=== PATIENT | male | born 1940 | race Hispanic/Latino ===

== ENCOUNTER 2017-12-25 07:10 | Inpatient (IN) | payer MEDICARE ==
[2017-12-25] MEDS ORDERED: PROVENTIL IH ONE (07:45)
[2017-12-25] MEDS ORDERED: LASIX IV ONE (07:45)
[2017-12-25] MEDS ORDERED: ATROVENT IH ONE (07:45)
--- NOTE | 2017-12-25 07:51 | Emergency Department Report ---
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 He has severe shortness of breath. Arrived by EMS. Hypoxia noted, requiring 4 L NC. Dull nondescript chest pain last night. +runny nose +productive cough +wheezing. No hx of asthma or bronchitis according to the patient. However, I did see in electronic medical record that he was evaluated in the ED for bronchitis and hypoxia in 2014. No recent travel or hospitalization. Recent normal cardiac stress test according to patient. MD Complaint: shortness of breath, cough, chest pain -: Gradual, Last night Severity: severe - Related Data Home Medications Medication Instructions Recorded Confirmed Last Taken Aspirin EC [Aspirin Enteric Coated 81 mg PO QDAY 04/21/15 04/21/15 Unknown TAB] Budesoni/Formotero 160-4.5(Nf) 2 puff IH BID 04/21/15 04/21/15 Unknown [Symbicort 160-4.5 (Nf)] Fluticasone (Nf) [Flovent 220 2 puff IH BID 04/21/15 04/21/15 Unknown MCG/PUFF HFA] Loratadine [Claritin] 10 mg PO DAILY 04/21/15 04/21/15 Unknown Losartan/Hydrochlorothiazide 1 tab PO QDAY 04/21/15 04/21/15 Unknown [Hyzaar 50-12.5 TAB] Montelukast [Singulair] 10 mg PO QDAY 04/21/15 04/21/15 Unknown Niacin [Niacin ER] 1,000 mg PO DAILY 04/21/15 04/21/15 Unknown Previous Rx's Medication Instructions Recorded Last Taken Type ALBUTEROL Inhaler [ProAir HFA 2 puff IH QID PRN #1 inhalation 04/21/15 Unknown Rx Inhaler] Azithromycin [Zithromax TAB] 250 mg PO QDAY #7 tablet 04/21/15 Unknown Rx Allergies Allergy/AdvReac Type Severity Reaction Status Date / Time No Known Allergies Allergy Unverified 04/21/15 13:22 ED Review of Systems ROS: Stated complaint: CHEST PAIN Other details as noted in HPI Comment: All other systems reviewed and negative Constitutional: malaise. 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, biology professor - Medications Home Medications: Home Medications Medication Instructions Recorded Confirmed Last Taken Type ALBUTEROL Inhaler [ProAir HFA 2 puff IH QID PRN #1 inhalation 04/21/15 Unknown Rx Inhaler] Aspirin EC [Aspirin Enteric Coated 81 mg PO QDAY 04/21/15 04/21/15 Unknown History TAB] Azithromycin [Zithromax TAB] 250 mg PO QDAY #7 tablet 04/21/15 Unknown Rx Budesoni/Formotero 160-4.5(Nf) 2 puff IH BID 04/21/15 04/21/15 Unknown History [Symbicort 160-4.5 (Nf)] Fluticasone (Nf) [Flovent 220 2 puff IH BID 04/21/15 04/21/15 Unknown History MCG/PUFF HFA] Loratadine [Claritin] 10 mg PO DAILY 04/21/15 04/21/15 Unknown History Losartan/Hydrochlorothiazide 1 tab PO QDAY 04/21/15 04/21/15 Unknown History [Hyzaar 50-12.5 TAB] Montelukast [Singulair] 10 mg PO QDAY 04/21/15 04/21/15 Unknown History Niacin [Niacin ER] 1,000 mg PO DAILY 04/21/15 04/21/15 Unknown History ED Physical Exam - General General appearance: alert, in distress, other (severe work of breathing, speaking two word sentences with effort) - Head Head exam: Present: atraumatic, normocephalic - Eye Eye exam: Absent: scleral icterus, conjunctival injection - ENT ENT exam: Present: normal orophraynx - Neck Neck exam: Present: normal inspection. Absent: tenderness, meningismus - Respiratory Respiratory exam: Present: respiratory distress, wheezes, rales, rhonchi, accessory muscle use. Absent: stridor - Cardiovascular Cardiovascular Exam: Present: normal rhythm, tachycardia, normal heart sounds. Absent: systolic murmur, diastolic murmur - GI/Abdominal GI/Abdominal exam: Present: soft, other (abdominal retractions). Absent: distended, tenderness, guarding, rebound - Extremities Exam Extremities exam: Absent: pedal edema - Neurological Exam Neurological exam: Present: alert, oriented X3 - Psychiatric Psychiatric exam: Present: normal affect, normal mood - Skin Skin exam: Present: warm, dry, intact, normal color ED Course Vital Signs 12/25/17 12/25/17 12/25/17 07:15 07:25 07:30 Temperature 98.4 F Pulse Rate 107 H 103 H 110 H Pulse Rate [ Bilateral] Pulse Rate [ Throughout] Respiratory 38 H 28 H 27 H Rate Respiratory Rate [Bilateral ] Respiratory Rate [ Throughout] Blood Pressure 152/92 152/89 O2 Sat by Pulse 97 97 97 Oximetry 12/25/17 12/25/17 12/25/17 07:45 08:00 08:12 Temperature Pulse Rate 107 H 105 H Pulse Rate [ 98 H Bilateral] Pulse Rate [ 102 H Throughout] Respiratory 17 18 Rate Respiratory 31 H Rate [Bilateral ] Respiratory 27 H Rate [ Throughout] Blood Pressure 167/92 163/95 O2 Sat by Pulse 97 97 Oximetry 12/25/17 12/25/17 12/25/17 08:13 08:15 08:31 Temperature Pulse Rate 110 H 111 H Pulse Rate [ Bilateral] Pulse Rate [ Throughout] Respiratory 38 H 32 H 10 L Rate Respiratory Rate [Bilateral ] Respiratory Rate [ Throughout] Blood Pressure 138/79 138/79 O2 Sat by Pulse 97 99 98 Oximetry 12/25/17 12/25/17 12/25/17 08:45 09:01 09:15 Temperature Pulse Rate 118 H 125 H 118 H Pulse Rate [ Bilateral] Pulse Rate [ Throughout] Respiratory 29 H 14 23 Rate Respiratory Rate [Bilateral ] Respiratory Rate [ Throughout] Blood Pressure 138/79 124/69 117/71 O2 Sat by Pulse 97 97 99 Oximetry ED Medical Decision Making - Lab Data Result diagrams: 12/25/17 07:56 12/25/17 07:56 - EKG Data EKG shows normal: axis, intervals Rate: tachycardia - EKG Data 12/25/17 07:54 Sinus tachycardia rate of 110 normal axis normal intervals no ST elevation inferior Q waves no signs of ischemia. No signs of Pericarditis - Radiology Data Radiology results: report reviewed CXR no infiltrate no PTX CTA chest no PE no infiltrate - Medical Decision Making Dr. Morrow presents with mild hypoxia, wheezing and cough. Acute bronchitis is the final dx after extensive evaluation in ED. I suspect likely chronic component. With persistent tachycardia, will need further treatment. 92-93% after treatment, breath sounds are now clear on ausculation. I initially felt patient had pneumonia or pulmonary edema with pretty remarkable lung exam. Admitted to hospitalist service in [facility]. Critical Care Time: Yes Critical care time in (mins) excluding proc time.: 45 Critical care attestation.: If time is entered above; I have spent that time in minutes in the direct care of this critically ill patient, excluding procedure time. ED Disposition Clinical Impression: Acute bronchitis, Acute respiratory failure with hypoxia Disposition: DC-09 OP ADMIT IP TO THIS HOSP Is pt being admited?: Yes Does the pt Need Aspirin: No Condition: Stable Time of Disposition: 13:56
[2017-12-25] MEDS ORDERED: BABY ASPIRIN PO ONE (07:55)
--- NOTE | 2017-12-25 08:11 | XRay Report ---
AP CHEST :12/25/17 07:10:00 CLINICAL: Dyspnea. COMPARISON:04/21/15 FINDINGS: Normal heart and pulmonary vasculature. Calcified hilar granulomata. The lungs are normally expanded and clear. The bones and soft tissues are normal. IMPRESSION: Old granulomatous disease. No acute cardiopulmonary process.
[2017-12-25 08:18] LABS: Basophils # (Auto) 0.1 K/mm3 (0.0-0.1); Basophils % (Auto) 1.2 % (0.0-1.8); Eosinophils # (Auto) 0.3 K/mm3 (0.0-0.4); Eosinophils % (Auto) 6.6 % (0.0-4.3); Hematocrit 44.6 % (35.5-45.6); Lymphocytes # (Auto) 0.6 K/mm3 (1.2-5.4); Lymphocytes % (Auto) 12.1 % (13.4-35.0); Mean Corpuscular HGB Conc 34 % (32-34); Mean Corpuscular Hemoglobin 32 pg (28-32); Mean Corpuscular Volume 96 fl (84-94); Monocytes # (Auto) 0.5 K/mm3 (0.0-0.8); Monocytes % (Auto) 10.6 % (0.0-7.3); Platelet Count 116 K/mm3 (140-440); Red Blood Count 4.66 M/mm3 (3.65-5.03); Red Cell Distribution Width 13.9 % (13.2-15.2)
[2017-12-25 08:35] LABS: Alanine Aminotransferase 16 units/L (7-56); Albumin 4.5 g/dL (3.9-5); BUN/Creatinine Ratio 18; Blood Urea Nitrogen 16 mg/dL (9-20); Calcium 9.5 mg/dL (8.4-10.2); Hemolysis Index 6
[2017-12-25] MEDS ORDERED: TYLENOL PO ONE (10:43)
--- NOTE | 2017-12-25 12:40 | Cat Scan Report ---
CTA CHEST: HISTORY: Wheezing, cough. COMPARISON: none. TECHNIQUE: Helical CT in 1.25mm intervals following IV contrast. Pulmonary embolus protocol. Sagittal and coronal reformatted images. Rotational MIP images. FINDINGS: Contrast bolus is satisfactory. No pulmonary embolus is identified. Thyroid gland: Normal. Tracheobronchial tree: Normal. Esophagus: Normal. Heart: Normal. Pericardium: Normal. Mediastinum: Normal. Lung Gastelum: Normal. Pleural Spaces: Normal. Musculoskeletal: Intact. Mild thoracic spondylosis is noted. IMPRESSION: No evidence for pulmonary embolus. Unremarkable CT chest with contrast.
[2017-12-25] MEDS ORDERED: LEVAQUIN PO ONE (14:31)
[2017-12-25] MEDS ORDERED: APRESOLINE IV PRN (23:34)
[2017-12-26] MEDS: PERCOCET 5/325 PO PRN ×3 (00:17→21:29)
--- NOTE | 2017-12-26 01:24 | History and Physical Report ---
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 He has severe shortness of breath. Arrived by EMS. Hypoxia noted, requiring 4 L NC. Dull nondescript chest pain last night. +runny nose +productive cough +wheezing. No hx of asthma or bronchitis according to the patient. However, he was evaluated in the ED for bronchitis and hypoxia in 2014. No recent travel or hospitalization. Recent normal cardiac stress test according to patient. 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, business management professor - Medications Home Medications: Home Medications Medication Instructions Recorded Confirmed Last Taken Type ALBUTEROL Inhaler [ProAir HFA 2 puff IH QID PRN #1 inhalation 04/21/15 Unknown Rx Inhaler] Aspirin EC [Aspirin Enteric Coated 81 mg PO QDAY 04/21/15 04/21/15 Unknown History TAB] Azithromycin [Zithromax TAB] 250 mg PO QDAY #7 tablet 04/21/15 Unknown Rx Budesoni/Formotero 160-4.5(Nf) 2 puff IH BID 04/21/15 04/21/15 Unknown History [Symbicort 160-4.5 (Nf)] Fluticasone (Nf) [Flovent 220 2 puff IH BID 04/21/15 04/21/15 Unknown History MCG/PUFF HFA] Loratadine [Claritin] 10 mg PO DAILY 04/21/15 04/21/15 Unknown History Losartan/Hydrochlorothiazide 1 tab PO QDAY 04/21/15 04/21/15 Unknown History [Hyzaar 50-12.5 TAB] Montelukast [Singulair] 10 mg PO QDAY 04/21/15 04/21/15 Unknown History Niacin [Niacin ER] 1,000 mg PO DAILY 04/21/15 04/21/15 Unknown History Review of Systems ROS: Stated complaint: CHEST PAIN Other details as noted in HPI Comment: All other systems reviewed and negative Constitutional: malaise. denies: fever ENT: congestion Respiratory: cough Cardiovascular: chest pain Medications and Allergies Allergies Allergy/AdvReac Type Severity Reaction Status Date / Time No Known Allergies Allergy Unverified 04/21/15 13:22 Home Medications Medication Instructions Recorded Confirmed Last Taken Type Niacin [Niacin ER] 1,000 mg PO DAILY 04/21/15 12/25/17 12/24/17 History Aspirin [Adult Low Dose Aspirin EC] 81 mg PO DAILY 12/25/17 12/25/17 12/24/17 History AtorvaSTATin [Lipitor] 40 mg PO QHS 12/25/17 12/25/17 12/24/17 History Clopidogrel [Plavix] 75 mg PO QDAY 12/25/17 12/25/17 12/24/17 History ISOSORBIDE MONOnitrate [Imdur ER] 30 mg PO DAILY 12/25/17 12/25/17 12/24/17 History Metoprolol [Lopressor] 25 mg PO DAILY 12/25/17 12/25/17 12/24/17 History Active Meds: Active Medications Aspirin (Halfprin Ec) 81 mg PO DAILY [facility] Atorvastatin Calcium (Lipitor) 40 mg PO QHS [facility] Last Admin: 12/26/17 00:17 Dose: 40 mg Clopidogrel Bisulfate (Plavix) 75 mg PO QDAY [facility] Hydralazine HCl (Apresoline) 5 mg IV Q6H PRN PRN Reason: Hypertension Isosorbide Mononitrate (Imdur) 30 mg PO DAILY [facility] Metoprolol Tartrate (Lopressor) 25 mg PO DAILY [facility] Niacin (Niacin) 1,000 mg PO DAILY [facility] Oxycodone/Acetaminophen (Percocet 5/325) 1 tab PO Q6H PRN PRN Reason: Pain, Moderate (4-6) Last Admin: 12/26/17 00:17 Dose: 1 tab Exam - Constitutional Vitals: Temp Pulse Resp BP Pulse Ox 98.3 F 100 H 20 149/85 94 12/25/17 19:27 12/25/17 19:27 12/26/17 00:17 12/25/17 19:27 12/25/17 19:27 General appearance: Present: mild distress - Respiratory Respiratory: bilateral: diminished, rhonchi - Cardiovascular Heart rate: 78 Rhythm: regular - Extremities Extremities: no ischemia, pulses intact Peripheral Pulses: within normal limits - Abdominal General gastrointestinal: Present: soft, non-tender, non-distended, normal bowel sounds Male genitourinary: Present: deferred - Rectal Rectal Exam: deferred - Integumentary Integumentary: Present: clear, warm, dry - Musculoskeletal Musculoskeletal: strength equal bilaterally - Psychiatric Psychiatric: appropriate mood/affect - Neurologic Neurologic: CNII-XII intact - Allied Health Allied health notes reviewed: nursing, case management Results - Labs CBC & Chem 7: 12/25/17 07:56 12/25/17 07:56 Labs: Laboratory Last Values WBC 4.9 K/mm3 (4.5-11.0) 12/25/17 07:56 RBC 4.66 M/mm3 (3.65-5.03) 12/25/17 07:56 Hgb 15.0 gm/dl (11.8-15.2) 12/25/17 07:56 Hct 44.6 % (35.5-45.6) 12/25/17 07:56 MCV 96 fl (84-94) H 12/25/17 07:56 MCH 32 pg (28-32) 12/25/17 07:56 MCHC 34 % (32-34) 12/25/17 07:56 RDW 13.9 % (13.2-15.2) 12/25/17 07:56 Plt Count 116 K/mm3 (140-440) L 12/25/17 07:56 Lymph % (Auto) 12.1 % (13.4-35.0) L 12/25/17 07:56 [place] % (Auto) 10.6 % (0.0-7.3) H 12/25/17 07:56 Eos % (Auto) 6.6 % (0.0-4.3) H 12/25/17 07:56 Baso % (Auto) 1.2 % (0.0-1.8) 12/25/17 07:56 Lymph # 0.6 K/mm3 (1.2-5.4) L 12/25/17 07:56 [place] # 0.5 K/mm3 (0.0-0.8) 12/25/17 07:56 Eos # 0.3 K/mm3 (0.0-0.4) 12/25/17 07:56 Baso # 0.1 K/mm3 (0.0-0.1) 12/25/17 07:56 Seg Neutrophils % 69.5 % (40.0-70.0) 12/25/17 07:56 Seg Neutrophils # 3.4 K/mm3 (1.8-7.7) 12/25/17 07:56 Sodium 139 mmol/L (137-145) 12/25/17 07:56 Potassium 3.9 mmol/L (3.6-5.0) 12/25/17 07:56 Chloride 99.4 mmol/L (98-107) 12/25/17 07:56 Carbon Dioxide 26 mmol/L (22-30) 12/25/17 07:56 Anion Gap 18 mmol/L 12/25/17 07:56 BUN 16 mg/dL (9-20) 12/25/17 07:56 Creatinine 0.9 mg/dL (0.8-1.5) 12/25/17 07:56 Estimated GFR > 60 ml/min 12/25/17 07:56 BUN/Creatinine Ratio 18 % 12/25/17 07:56 Glucose 113 mg/dL (75-100) H 12/25/17 07:56 Lactic Acid 1.10 mmol/L (0.7-2.0) 12/25/17 07:56 Calcium 9.5 mg/dL (8.4-10.2) 12/25/17 07:56 Total Bilirubin 0.70 mg/dL (0.1-1.2) 12/25/17 07:56 AST 22 units/L (5-40) 12/25/17 07:56 ALT 16 units/L (7-56) 12/25/17 07:56 Alkaline Phosphatase 95 units/L (35-129) 12/25/17 07:56 Troponin T < 0.010 ng/mL (0.00-0.029) 12/25/17 07:56 Total Protein 7.7 g/dL (6.3-8.2) 12/25/17 07:56 Albumin 4.5 g/dL (3.9-5) 12/25/17 07:56 Albumin/Globulin Ratio 1.4 % 12/25/17 07:56 - Imaging and Cardiology Chest x-ray: report reviewed Imaging and Cardiology: CTA chest IMPRESSION: No evidence for pulmonary embolus. Unremarkable CT chest with contrast. Assessment and Plan Advance Directives: Yes (Full code) VTE prophylaxis?: Chemical Plan of care discussed with patient/family: Yes - Patient Problems (1) Acute respiratory failure with hypoxia Current Visit: Yes Status: Acute Plan to address problem: Patient initiated on Duonebs IV Levaquin and Solumedrol Bipap if necessary Intubation if necessary (2) Acute bronchitis Current Visit: Yes Status: Acute Qualifiers: Bronchitis organism: unspecified organism Qualified Code(s): J20.9 - Acute bronchitis, unspecified Plan to address problem: Sec to infection Patient has Hx of Asthma but no COPD Never exposed to smoke or secong hand smoke. IV abx Solumedrol and Duonebs (3) HTN (hypertension) Current Visit: Yes Status: Chronic Qualifiers: Hypertension type: essential hypertension Qualified Code(s): I10 - Essential (primary) hypertension Plan to address problem: Cont antihypertensives (4) CAD (coronary artery disease) Current Visit: Yes Status: Chronic Qualifiers: Coronary Disease-Associated Artery/Lesion type: [place] artery Plan to address problem: Cont ASA Check ECHO for baseline EF Also Lexiscan in AM (5) Hyperlipidemia Current Visit: Yes Status: Chronic Qualifiers: Hyperlipidemia type: mixed hyperlipidemia Qualified Code(s): E78.2 - Mixed hyperlipidemia Plan to address problem: Cont statins (6) Asthma Current Visit: Yes Status: Chronic Qualifiers: Asthma severity: mild Plan to address problem: Cont Singulair (7) DVT prophylaxis Current Visit: Yes Status: Acute Plan to address problem: On Lovenox
[2017-12-26] MEDS ORDERED: MORPHINE IV PRN (01:35)
[2017-12-26] MEDS ORDERED: SODIUM CHLORIDE FLUSH SYRINGE 10 ML IV PRN (01:35)
[2017-12-26] MEDS ORDERED: REGLAN IV PRN (01:35)
[2017-12-26] MEDS ORDERED: TYLENOL PO PRN (01:35)
[2017-12-26] MEDS ORDERED: ZOFRAN IV PRN (01:35)
[2017-12-26] MEDS ORDERED: DUONEB *Not for PRN Use IH (01:40)
[2017-12-26] MEDS ORDERED: PROVENTIL IH PRN (01:57)
[2017-12-26] MEDS: PEPCID PO SCH ×3 (04:19→21:11)
[2017-12-26] MEDS ORDERED: LEXISCAN IV ONE (08:18)
[2017-12-26] MEDS: DUONEB *Not for PRN Use IH SCH ×4 (08:35→21:06)
[2017-12-26] MEDS: LEVAQUIN 750MG/150ML 750 MG/150 ML BAG IV SCH (10:31)
[2017-12-26] MEDS: PLAVIX PO SCH (10:32)
[2017-12-26] MEDS: HALFPRIN EC PO SCH (10:32)
[2017-12-26] MEDS: SODIUM CHLORIDE FLUSH SYRINGE 10 ML IV SCH ×2 (10:32→21:12)
[2017-12-26] MEDS: NIACIN PO SCH (10:32)
[2017-12-26] MEDS: LOPRESSOR PO SCH (10:32)
[2017-12-26] MEDS: IMDUR PO SCH (10:32)
--- NOTE | 2017-12-26 10:38 | Treadmill Report ---
THALLIUM STRESS TEST LEFT VENTRICLE: Left ventricular chamber size is within normal spread. Perfusion study demonstrates a small fixed basal inferior defect of mild intensity. No other significant defects identified. Gated analysis demonstrates normal left ventricular systolic function, ejection fraction of 68%. CONCLUSION: Small fixed basal inferior defect, consistent with diaphragmatic attenuation artifact. Otherwise, normal myocardial perfusion study. Negative study. Clinical correlation is recommended. JOB# [id number] CA/NTS
--- NOTE | 2017-12-26 12:14 | Progress Note ---
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 He has severe shortness of breath. Arrived by EMS. Hypoxia noted, requiring 4 L NC. Dull nondescript chest pain last night. +runny nose +productive cough +wheezing. No hx of asthma or bronchitis according to the patient. However, he was evaluated in the ED for bronchitis and hypoxia in 2014. No recent travel or hospitalization. Recent normal cardiac stress test according to patient. MD Complaint: shortness of breath, cough, chest pain-: Gradual, Last night Severity: severe CTA Chest No evidence for pulmonary embolus. Unremarkable CT chest with contrast. Stress test result pending Past Medical History; htn, cad Acute respiratory failure with hypoxia Patient initiated on Duonebs IV Levaquin and Solumedrol Bipap if necessary Intubation if necessary Acute bronchitis/asthma Sec to infection Patient has Hx of Asthma but no COPD Never exposed to smoke or secong hand smoke. IV abx Solumedrol and Duonebs, singulair HTN (hypertension) Cont antihypertensives CAD (coronary artery disease) Cont ASA Check ECHO for baseline EF Also Lexiscan for ischemic workout Hyperlipidemia Cont statins DVT prophylaxis On Lovenox History Interval history: The patient is still complaining of shortness of breath and wheezing Review of systems Constitutional: No fevers, no malaise, no joint pains CVS: No chest pain, no orthopnea, no dyspnea on exertion, no pedal edema GI: No abdominal pain, no diarrhea, no vomiting, no constipation Hospitalist Physical - Physical exam Narrative exam: General.: Appears well, no distress, nontoxic , unable to speak in full sentences HEENT: Moist mucous membranes, extraocular muscles intact, no lymphadenopathy Neck: supple Cardiac: S1-S2 heard Lungs: Wheezing and rhonchorous breath sounds throughout Abdomen: soft , nontender, nondistended, bowel sounds positive Extremities: no edema clubbing or cyanosis Skin: no rash or lesions Neurologic: no gross focal deficits Psych: appropriate behavior, appropriate mood, corporative, judgment intact - Constitutional Vitals: Temp Pulse Resp BP Pulse Ox 98.0 F 105 H 16 166/91 90 12/26/17 08:17 12/26/17 09:29 12/26/17 08:17 12/26/17 09:29 12/26/17 08:17 General appearance: Present: mild distress Results - Labs CBC & Chem 7: 12/25/17 07:56 12/25/17 07:56 Labs: Laboratory Last Values WBC 4.9 K/mm3 (4.5-11.0) 12/25/17 07:56 RBC 4.66 M/mm3 (3.65-5.03) 12/25/17 07:56 Hgb 15.0 gm/dl (11.8-15.2) 12/25/17 07:56 Hct 44.6 % (35.5-45.6) 12/25/17 07:56 MCV 96 fl (84-94) H 12/25/17 07:56 MCH 32 pg (28-32) 12/25/17 07:56 MCHC 34 % (32-34) 12/25/17 07:56 RDW 13.9 % (13.2-15.2) 12/25/17 07:56 Plt Count 116 K/mm3 (140-440) L 12/25/17 07:56 Lymph % (Auto) 12.1 % (13.4-35.0) L 12/25/17 07:56 [place] % (Auto) 10.6 % (0.0-7.3) H 12/25/17 07:56 Eos % (Auto) 6.6 % (0.0-4.3) H 12/25/17 07:56 Baso % (Auto) 1.2 % (0.0-1.8) 12/25/17 07:56 Lymph # 0.6 K/mm3 (1.2-5.4) L 12/25/17 07:56 [place] # 0.5 K/mm3 (0.0-0.8) 12/25/17 07:56 Eos # 0.3 K/mm3 (0.0-0.4) 12/25/17 07:56 Baso # 0.1 K/mm3 (0.0-0.1) 12/25/17 07:56 Seg Neutrophils % 69.5 % (40.0-70.0) 12/25/17 07:56 Seg Neutrophils # 3.4 K/mm3 (1.8-7.7) 12/25/17 07:56 Sodium 139 mmol/L (137-145) 12/25/17 07:56 Potassium 3.9 mmol/L (3.6-5.0) 12/25/17 07:56 Chloride 99.4 mmol/L (98-107) 12/25/17 07:56 Carbon Dioxide 26 mmol/L (22-30) 12/25/17 07:56 Anion Gap 18 mmol/L 12/25/17 07:56 BUN 16 mg/dL (9-20) 12/25/17 07:56 Creatinine 0.9 mg/dL (0.8-1.5) 12/25/17 07:56 Estimated GFR > 60 ml/min 12/25/17 07:56 BUN/Creatinine Ratio 18 % 12/25/17 07:56 Glucose 113 mg/dL (75-100) H 12/25/17 07:56 Hemoglobin A1c 5.3 % (4-6) 12/26/17 03:34 Lactic Acid 1.10 mmol/L (0.7-2.0) 12/25/17 07:56 Calcium 9.5 mg/dL (8.4-10.2) 12/25/17 07:56 Total Bilirubin 0.70 mg/dL (0.1-1.2) 12/25/17 07:56 AST 22 units/L (5-40) 12/25/17 07:56 ALT 16 units/L (7-56) 12/25/17 07:56 Alkaline Phosphatase 95 units/L (35-129) 12/25/17 07:56 Troponin T < 0.010 ng/mL (0.00-0.029) 12/26/17 06:51 Total Protein 7.7 g/dL (6.3-8.2) 12/25/17 07:56 Albumin 4.5 g/dL (3.9-5) 12/25/17 07:56 Albumin/Globulin Ratio 1.4 % 12/25/17 07:56
--- NOTE | 2017-12-26 13:20 | Consultation ---
History of Present Illness Consult date: 12/26/17 Requesting physician: AIME DOHERTY Reason for consult: COPD (Acute Hypoxemic Respiratory Failure) History of present illness: PULMONARY/CCM CONSULT NOTE (Full dictation # [id number]) Please see dictated notes for full details Medications and Allergies Allergies Allergy/AdvReac Type Severity Reaction Status Date / Time No Known Allergies Allergy Unverified 04/21/15 13:22 Home Medications Medication Instructions Recorded Confirmed Last Taken Type Niacin [Niacin ER] 1,000 mg PO DAILY 04/21/15 12/25/17 12/24/17 History Aspirin [Adult Low Dose Aspirin EC] 81 mg PO DAILY 12/25/17 12/25/17 12/24/17 History AtorvaSTATin [Lipitor] 40 mg PO QHS 12/25/17 12/25/17 12/24/17 History Clopidogrel [Plavix] 75 mg PO QDAY 12/25/17 12/25/17 12/24/17 History ISOSORBIDE MONOnitrate [Imdur ER] 30 mg PO DAILY 12/25/17 12/25/17 12/24/17 History Metoprolol [Lopressor] 25 mg PO DAILY 12/25/17 12/25/17 12/24/17 History Active Meds: Active Medications Acetaminophen (Tylenol) 650 mg PO Q4H PRN PRN Reason: Pain MILD(1-3)/Fever >100.5/HEARD Albuterol (Proventil) 2.5 mg IH Q3HRT PRN PRN Reason: Shortness Of Breath Albuterol/Ipratropium (Duoneb *Not For Prn Use*) 1 ampul IH QIDRT [facility] Last Admin: 12/26/17 13:10 Dose: 1 ampul Aspirin (Halfprin Ec) 81 mg PO DAILY [facility] [place] Last Admin: 12/26/17 10:32 Dose: 81 mg Atorvastatin Calcium (Lipitor) 40 mg PO QHS [facility] [place] Last Admin: 12/26/17 00:17 Dose: 40 mg Clopidogrel Bisulfate (Plavix) 75 mg PO QDAY [facility] Last Admin: 12/26/17 10:32 Dose: 75 mg Enoxaparin Sodium (Lovenox) 40 mg SUB-Q QDAY@2200 [facility] Famotidine (Pepcid) 20 mg PO BID [facility] Last Admin: 12/26/17 10:32 Dose: 20 mg Hydralazine HCl (Apresoline) 5 mg IV Q6H PRN PRN Reason: Hypertension Levofloxacin/Dextrose (Levaquin 750mg/150ml) 750 mg in 150 mls @ 100 mls/hr IV Q24HR [facility]; Protocol Last Admin: 12/26/17 10:31 Dose: 100 mls/hr Isosorbide Mononitrate (Imdur) 30 mg PO DAILY [facility] [place] Last Admin: 12/26/17 10:32 Dose: 30 mg Methylprednisolone Sodium Succinate (Solu-Medrol) 125 mg IV Q8HR [facility] [place] Last Admin: 12/26/17 05:54 Dose: 125 mg Metoclopramide HCl (Reglan) 10 mg IV Q6H PRN PRN Reason: Nausea And Vomiting Metoprolol Tartrate (Lopressor) 25 mg PO DAILY [facility] [place] Last Admin: 12/26/17 10:32 Dose: 25 mg Morphine Sulfate (Morphine) 2 mg IV Q4H PRN PRN Reason: Pain, Moderate (4-6) Niacin (Niacin) 1,000 mg PO DAILY [facility] [place] Last Admin: 12/26/17 10:32 Dose: 1,000 mg Ondansetron HCl (Zofran) 4 mg IV Q8H PRN PRN Reason: Nausea And Vomiting Oxycodone/Acetaminophen (Percocet 5/325) 1 tab PO Q6H PRN PRN Reason: Pain, Moderate (4-6) Last Admin: 12/26/17 10:44 Dose: 1 tab Sodium Chloride (Sodium Chloride Flush Syringe 10 Ml) 10 ml IV BID [facility] [place] Last Admin: 12/26/17 10:32 Dose: 10 ml Sodium Chloride (Sodium Chloride Flush Syringe 10 Ml) 10 ml IV PRN PRN PRN Reason: LINE FLUSH Physical Examination Vital signs: Vital Signs Temp Pulse Resp BP Pulse Ox 98.4 F 107 H 38 H 152/92 97 12/25/17 07:15 12/25/17 07:15 12/25/17 07:15 12/25/17 07:15 12/25/17 07:15 Results - Laboratory Findings CBC and BMP: 12/25/17 07:56 12/25/17 07:56 Abnormal lab findings: Abnormal Labs 12/25/17 12/25/17 07:56 07:56 MCV 96 H Plt Count 116 L Lymph % (Auto) 12.1 L Stark % (Auto) 10.6 H Eos % (Auto) 6.6 H Lymph # 0.6 L Glucose 113 H
[2017-12-26] MEDS: PULMICORT IH SCH (21:05)
[2017-12-26] MEDS: BROVANA NEBU IH SCH (21:05)
[2017-12-26] MEDS: LOVENOX SUB-Q SCH (21:12)
--- NOTE | 2017-12-26 23:42 | Consultation ---
PULMONARY CONSULT NOTE CONSULTING PHYSICIAN: Benjamin Camacho MD REASON FOR CONSULTATION: Acute COPD exacerbation. CHIEF COMPLAINT AND HISTORY OF PRESENT ILLNESS: The patient is a 77-year-old male with past medical history significant amongst other things for a diagnosis of coronary artery disease and he thinks a prior diagnosis of bronchitis, presented to the Emergency Room complaining of severe shortness of breath. He was hypoxemic. He denies being on home oxygen. He had complained of some atypical chest pain in the night before presentation. When I saw him, he was complaining of pain behind the left scapula in the base. He also complained of runny nose and productive cough without any hemoptysis. He also had some wheezing. He was evaluated in the Emergency Room and after evaluation, essentially admitted with a diagnosis of acute bronchitis and acute hypoxemic respiratory failure, believed to be COPD exacerbation. We were asked to assist with management. When I stopped by to see him, he was resting in bed. He remained on supplemental oxygen, still short of breath with mild to moderately increased work of breathing, finding is a little bit difficult to communicate/find his words. He did say he was feeling better. He denied any fevers or chills. He denied sick contacts. He denied being on any bronchodilators at home. He denies any recent long distance travel. Denies any new onset leg pain or swelling either unilaterally or bilaterally or any suggestion of a deep venous thrombosis. Now in terms of tobacco use/abuse, he describes himself as a never smoker and denies any occupational exposures to known pulmonary toxins. That really is as much of the history of presentation as I have. PAST MEDICAL HISTORY: Hypertension, coronary artery disease. He is obese. PAST SURGICAL HISTORY: He denies, but he has had coronary artery stenting x 4. MEDICATIONS: He was on at the time I stopped by to see him were reviewed. Pertinent medications included the following: DuoNeb treatments nebulized q.i.d., Brovana 15 mcg inhaled q. 12 hours, aspirin 81 mg p.o. daily, Lipitor 40 mg p.o. at bedtime, Pulmicort 0.25 mg nebulized q. 12 hours, Plavix 75 mg p.o. daily, Lovenox 40 mg subcutaneous daily, Pepcid 20 mg p.o. b.i.d., Levaquin 750 mg IV daily, Solu-Medrol 125 mg IV q. 8 hours, metoprolol 25 mg p.o. daily, p.r.n. Zofran, and p.r.n. Percocet. ALLERGIES: No known drug allergies. DIET: Obese gentleman. Denies acute weight loss or gain in the preceding few weeks to months. FAMILY AND SOCIAL HISTORY: Lives in the community. I believe he tells me he lives alone. Reportedly, a retired physics professor. Denies current or prior tobacco use or abuse, alcohol or illicit drug use or abuse. Family history, otherwise noncontributory. REVIEW OF SYSTEMS: A little difficult to obtain secondary to the patient's medical and mental condition. He did deny any gross hematochezia or melena. Denied gross hematuria. Denied hematemesis. Denied polyuria or polydipsia. Denied heat or cold intolerance. Complete 13-system review of systems obtained. Pertinent positives and/or negatives as in body of history above, otherwise they are noncontributory. PHYSICAL EXAMINATION: VITAL SIGNS: At presentation, he was afebrile, temperature 98.4 degrees Fahrenheit with a pulse of 107, respiratory rate of 38, blood pressure 152/92, oxygen sats were 97%, inspired oxygen concentration was not recorded. He has remained afebrile mostly. GENERAL: He is an elderly looking male, normocephalic, atraumatic, talking to me in slight interrupted sentences, in mild to moderate respiratory distress. HEAD, EYES, EARS, NOSE, AND THROAT: He is anicteric. No conjunctival erythema. Oropharynx is moist. Grossly, no palpable lymph nodes in the supraclavicular or submandibular lymph node chains. No gross jugular venous distention. No thyromegaly. LUNGS: Auscultation of both lung moore significant for bilateral rhonchi, diminished breath sounds, prolonged expiratory phase and faint expiratory wheezing. HEART: Heart sounds 1 and 2 are heard at the time of my evaluation, regular rate and rhythm. No rubs or murmurs. ABDOMEN: Soft, protuberant. Bowel sounds are positive, nontender. No palpable hepatosplenomegaly. EXTREMITIES: Without overt digital clubbing, cyanosis, no pedal edema. Dorsalis pedis pulses are palpable bilaterally. NEUROLOGIC: Pupils are equal, round, about 3-4 mm, reactive to light. Extraocular muscle movements are intact. He moves all 4 extremities spontaneously. The skin is of normal turgor. No cellulitis, no rash. He is a little tender to palpation in the back, just been at the left scapular border, appears to be musculoskeletal type pain. LABORATORY DATA: From my review are as follows: White cell count 4900, hemoglobin 15.0, hematocrit 44.6, platelet count 216. No manual differential. Serum sodium 139, potassium 3.9, chloride 99, bicarbonate 26, BUN 16, creatinine 0.9, glucose 113. Hemoglobin A1c 5.3. Liver function tests essentially within normal limits. Two sets of blood cultures were drawn, they are no growth to date. Chest x-ray is reviewed. Essentially some mild element of hyperinflation. The film is rotated slightly to the left. Slightly increased interstitial markings, but otherwise no real acute process. A CT angiogram was also done of his chest. I have reviewed the images, I have also reviewed the radiologist's interpretation. The mediastinal window essentially showed no gross filling defects that is consistent with significant pulmonary emboli. No significant mediastinal adenopathy. The long windows really unremarkable. No significant paraseptal or other encephalopathy. No focal infiltrate consistent with pneumonia. ASSESSMENT: 1. Acute hypoxemic respiratory failure. 2. Possible acute chronic obstructive pulmonary disease exacerbation. 3. Atypical chest pain. 4. History of coronary artery disease. 5. Hypertension. 6. Hyperglycemia, mild. 7. Obesity. PLAN: I agree with current therapy directed at COPD. Agree with empiric antibiotics. I agree with long and short acting bronchodilators. I do agree with systemic steroids. I will begin the taper. I will get a D-dimer level as well as an arterial blood gas to better evaluate for hypercapnia as well as the pO2. If the D-dimer is elevated, I will get bilateral lower extremity Dopplers to complete the DVT workup, especially in light of the atypical chest pain. Sputum will be sent for Gram stain cultures and sensitivities if he is able to make any. I will get a CRP level and trend as necessary during this admission, especially with the patient being on systemic steroids. He is appropriately on GI and DVT prophylaxis. Cardiology evaluation is in order, especially with a history of coronary artery disease. Flu and pneumonia vaccination will be addressed per protocol. Thank you very much for the consult. We will follow along. We will make further recommendations as picture progresses/becomes clearer. JOB# [id number] VENITA/SUDEEP
[2017-12-27 06:02] LABS: Hemoglobin 14.8 gm/dl (11.8-15.2); Mean Corpuscular HGB Conc 34 % (32-34); Mean Corpuscular Hemoglobin 32 pg (28-32); Mean Corpuscular Volume 94 fl (84-94); Platelet Count 140 K/mm3 (140-440); Red Blood Count 4.56 M/mm3 (3.65-5.03); Red Cell Distribution Width 14.2 % (13.2-15.2)
[2017-12-27 06:30] LABS: Albumin 4.1 g/dL (3.9-5); Calcium 9.4 mg/dL (8.4-10.2)
[2017-12-27 08:27] LABS: Anisocytosis 1+; Basophils % (Manual) 0 % (0.0-1.8); Eosinophils % (Manual) 0 % (0.0-4.3); Platelet Estimate Cons; Total Cells Counted 100
[2017-12-27] MEDS: BROVANA NEBU IH SCH ×2 (08:35→20:28)
[2017-12-27] MEDS: DUONEB *Not for PRN Use IH SCH ×4 (08:35→20:29)
[2017-12-27] MEDS: PULMICORT IH SCH ×2 (08:35→20:28)
[2017-12-27] MEDS: LOPRESSOR PO SCH (11:03)
[2017-12-27] MEDS: PEPCID PO SCH ×2 (11:03→21:54)
[2017-12-27] MEDS: IMDUR PO SCH (11:04)
[2017-12-27] MEDS: PLAVIX PO SCH (11:04)
[2017-12-27] MEDS: NIACIN PO SCH (11:04)
[2017-12-27] MEDS: HALFPRIN EC PO SCH (11:04)
[2017-12-27] MEDS: SODIUM CHLORIDE FLUSH SYRINGE 10 ML IV SCH ×2 (11:05→21:55)
[2017-12-27] MEDS: LEVAQUIN 750MG/150ML 750 MG/150 ML BAG IV SCH (11:05)
[2017-12-27] MEDS: PERCOCET 5/325 PO PRN (11:15)
--- NOTE | 2017-12-27 12:05 | Discharge Summary ---
Providers - Providers Date of Admission: 12/25/17 13:58 Attending physician: POONAM STACY MD 12/26/17 Consult to Case Management [CONS] Routine Services Needed at Discharge: Home Health Services Notified:: case management 12/26/17 01:50 Consult to Physician [CONS] Routine Comment: Consulting Provider: ANGIE VANCE Physician Instructions: Reason For Exam: copd exac Primary care physician: [employer] Hospitalization Condition: Stable Hospital course: 77-year-old man with history of COPD, chronic bronchitis presented with shortness of breath. He was treated with steroids and nebulizers and antibiotics. Patient improved. His medications and optimized. He was weaned off oxygen prior to discharge. Discharge diagnoses Acute respiratory failure with hypoxia Acute exacerbation of COPD Hypertension CAD Hyperlipidemia Disposition: - TO HOME OR SELFCARE Time spent for discharge: 33 minutes Core Measure Documentation - Palliative Care Palliative Care/ Comfort Measures: Not Applicable - Core Measures Any of the following diagnoses?: none Exam - Constitutional Vitals: Temp Pulse Resp BP Pulse Ox 97.4 F L 85 18 121/51 95 12/27/17 07:35 12/27/17 12:03 12/27/17 12:03 12/27/17 07:35 12/27/17 07:35 General appearance: Present: no acute distress, well-nourished - EENT Eyes: Present: PERRL ENT: hearing intact, clear oral mucosa - Neck Neck: Present: supple, normal ROM - Respiratory Respiratory effort: normal Respiratory: bilateral: CTA - Cardiovascular Heart Sounds: Present: S1 & S2. Absent: rub, click - Extremities Extremities: pulses symmetrical, No edema Peripheral Pulses: within normal limits - Abdominal General gastrointestinal: Present: soft, non-tender, non-distended, normal bowel sounds Male genitourinary: Present: normal - Integumentary Integumentary: Present: clear, warm, dry - Musculoskeletal Musculoskeletal: gait normal, strength equal bilaterally - Psychiatric Psychiatric: appropriate mood/affect, intact judgment & insight - Neurologic Neurologic: CNII-XII intact, moves all extremities Plan Follow up with: PRIMARY CARE, [Primary Care Provider] - 3-5 Days Prescriptions: AtorvaSTATin [Lipitor] 40 mg PO QHS #30 tablet ALBUTEROL NEB's [Proventil 0.083% NEBS] 2.5 mg IH Q3HRT PRN #180 nebu PRN Reason: Shortness Of Breath Aspirin [Adult Low Dose Aspirin EC] 81 mg PO DAILY #30 tablet.dr Clopidogrel [Plavix] 75 mg PO QDAY #30 tablet Cyclobenzaprine HCl [Flexeril 5 MG TAB] 5 mg PO TID PRN #30 tab PRN Reason: Spasms Desonide [Desonide 0.05%] 1 applicatio TP BID #1 tube Fluticasone/Salmeterol [Advair 100-50 Diskus] 1 each IH BID #1 blst.w.dev ISOSORBIDE MONOnitrate [Imdur ER] 30 mg PO DAILY #30 tablet Levofloxacin [Levaquin TAB] 750 mg PO Q24HR #3 tablet Metoprolol Succinate [Toprol Xl] 25 mg PO DAILY #30 tab.er.24h Naproxen [Naprosyn] 500 mg PO BID PRN #30 tablet PRN Reason: Pain, Moderate (4-6) Prednisone [predniSONE 10 mg (6-Day Pack, 21 Tabs)] 10 mg PO .TAPER #1 tab.ds.pk
--- NOTE | 2017-12-27 18:46 | Progress Note ---
Assessment and Plan Patient alert, awake and resting on room air.Patient says breathing alright now.O2 saturation 92% on room air.Complaining back pain coming and going. - Patient Problems (1) Asthma Current Visit: Yes Status: Chronic Qualifiers: Asthma severity: mild Plan to address problem: O2 2 litres via nasal canula Albuterol/atrovent aerosol treatments q 6 hours. Continue I/V solumedrol Continue S/C Lovenox. Continue famotidine. Continue Levaquin. (2) Acute bronchitis Current Visit: Yes Status: Acute Qualifiers: Bronchitis organism: unspecified organism Qualified Code(s): J20.9 - Acute bronchitis, unspecified Plan to address problem: Continue Levaquin. (3) CAD (coronary artery disease) Current Visit: Yes Status: Chronic Qualifiers: Coronary Disease-Associated Artery/Lesion type: [place] artery Plan to address problem: Management as per primary care and cardiology. (4) HTN (hypertension) Current Visit: Yes Status: Chronic Qualifiers: Hypertension type: essential hypertension Qualified Code(s): I10 - Essential (primary) hypertension Plan to address problem: Management as per primary care. (5) Hyperlipidemia Current Visit: Yes Status: Chronic Qualifiers: Hyperlipidemia type: mixed hyperlipidemia Qualified Code(s): E78.2 - Mixed hyperlipidemia Plan to address problem: Management as per primary care. Subjective Date of service: 12/27/17 Interval history: Patient alert, awake and resting on room air.Patient says breathing alright now.O2 saturation 92% on room air.Complaining back pain coming and going. Objective Vital Signs - 12hr 12/27/17 12/27/17 12/27/17 07:35 08:36 08:59 Temperature 97.4 F L Pulse Rate 78 Pulse Rate [ 69 68 Throughout] Respiratory 16 Rate Respiratory 18 18 Rate [ Throughout] Blood Pressure 121/51 O2 Sat by Pulse 95 Oximetry 12/27/17 12/27/17 12/27/17 10:00 11:52 12:03 Temperature 97.5 F L Pulse Rate 92 H 80 Pulse Rate [ 71 85 Throughout] Respiratory 18 Rate Respiratory 18 18 Rate [ Throughout] Blood Pressure 123/70 O2 Sat by Pulse 94 Oximetry 12/27/17 12/27/17 12/27/17 16:30 16:43 16:53 Temperature 97.7 F Pulse Rate 89 Pulse Rate [ 76 93 H Throughout] Respiratory 18 Rate Respiratory 18 18 Rate [ Throughout] Blood Pressure 105/61 O2 Sat by Pulse 94 Oximetry Constitutional: no acute distress, alert Eyes: non-icteric ENT: oropharynx moist Ascultation: Bilateral: diminished breath sounds (at the bases.) Cardiovascular: regular rate and rhythm Gastrointestinal: normoactive bowel sounds, soft, non-tender Integumentary: normal Extremities: no cyanosis, no edema Neurologic: normal mental status, non-focal exam, pupils equal and round, CN II- XII normal Psychiatric: mood appropriate CBC and BMP: 12/27/17 05:46 12/27/17 05:46 ABG, PT/INR, D-dimer: ABG POC ABG pH 7.435 (7.35-7.45) 12/26/17 21:29 POC ABG pCO2 36.8 (35-45) 12/26/17 21:29 POC ABG pO2 72 (80-105) L 12/26/17 21:29 POC ABG HCO3 24.7 12/26/17 21:29 POC ABG Total CO2 26 12/26/17 21:29 POC ABG O2 Sat 95 12/26/17 21:29 PT/INR, D-dimer D-Dimer 474.35 ng/mlDDU (0-234) H 12/26/17 20:55 Abnormal lab findings: Abnormal Labs 12/25/17 12/25/17 12/26/17 07:56 07:56 20:55 MCV 96 H Plt Count 116 L Lymph % (Auto) 12.1 L Curry % (Auto) 10.6 H Eos % (Auto) 6.6 H Lymph # 0.6 L Seg Neuts % (Manual) Lymphocytes % (Manual) Seg Neutrophils # Man Lymphocytes # (Manual) D-Dimer 474.35 H POC ABG pO2 Sodium Chloride BUN Glucose 113 H 12/26/17 12/27/17 12/27/17 21:29 05:46 05:46 MCV Plt Count Lymph % (Auto) Curry % (Auto) Eos % (Auto) Lymph # Seg Neuts % (Manual) 94.0 H Lymphocytes % (Manual) 2.0 L Seg Neutrophils # Man 9.4 H Lymphocytes # (Manual) 0.2 L D-Dimer POC ABG pO2 72 L Sodium 136 L Chloride 93.6 L BUN 35 H Glucose 153 H Chest x-ray: report reviewed (Old granulomatous disease. No acute cardiopulmonary process.), image reviewed CT scan - chest: report reviewed (No PE.), image reviewed
--- NOTE | 2017-12-27 21:23 | XRay Report ---
FINAL REPORT PROCEDURE: XR SPINE LUMBOSACRAL 2-3V TECHNIQUE: Lumbar spine radiographs, frontal and lateral views. CPT 68944 HISTORY: back pain COMPARISON: No prior studies are available for comparison. FINDINGS: Alignment: There is loss of lumbar lordosis.. Vertebral body heights/Disk spaces: Normal . Fracture(s): None . Facets: Normal . Bone mineralization: Mild to moderate degree marginal osteophyte formation is noted at all the lumbar levels.. IMPRESSION: Lumbar spondylosis in the form of marginal osteophyte formation. No acute fracture Straightening of the lumbar spine is most likely secondary to spasm
[2017-12-27] MEDS: LOVENOX SUB-Q SCH (21:55)
[2017-12-28] MEDS: PULMICORT IH SCH (08:07)
[2017-12-28] MEDS: BROVANA NEBU IH SCH (08:07)
[2017-12-28] MEDS: DUONEB *Not for PRN Use IH SCH ×2 (08:08→16:00)
[2017-12-28] MEDS ORDERED: LEVAQUIN PO SCH (10:00)
[2017-12-28] MEDS: LOPRESSOR PO SCH (10:02)
[2017-12-28] MEDS: PLAVIX PO SCH (10:02)
[2017-12-28] MEDS: IMDUR PO SCH (10:02)
[2017-12-28] MEDS: PEPCID PO SCH (10:02)
[2017-12-28] MEDS: NIACIN PO SCH (10:02)
[2017-12-28] MEDS: HALFPRIN EC PO SCH (10:02)
--- NOTE | 2017-12-28 11:25 | Progress Note ---
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 He has severe shortness of breath. Arrived by EMS. Hypoxia noted, requiring 4 L NC. Dull nondescript chest pain last night. +runny nose +productive cough +wheezing. No hx of asthma or bronchitis according to the patient. However, he was evaluated in the ED for bronchitis and hypoxia in 2014. No recent travel or hospitalization. Recent normal cardiac stress test according to patient. MD Complaint: shortness of breath, cough, chest pain-: Gradual, Last night Severity: severe CTA Chest No evidence for pulmonary embolus. Unremarkable CT chest with contrast. Stress test result pending Past Medical History; htn, cad Acute respiratory failure with hypoxia Patient initiated on Duonebs IV Levaquin and Solumedrol Bipap if necessary Intubation if necessary Acute bronchitis/asthma Sec to infection Patient has Hx of Asthma but no COPD Never exposed to smoke or secong hand smoke. IV abx Solumedrol and Duonebs, singulair HTN (hypertension) Cont antihypertensives CAD (coronary artery disease) Cont ASA Check ECHO for baseline EF Also Lexiscan for ischemic workout Hyperlipidemia Cont statins DVT prophylaxis On Lovenox History Interval history: The patient is still complaining of shortness of breath and wheezing Review of systems Constitutional: No fevers, no malaise, no joint pains CVS: No chest pain, no orthopnea, no dyspnea on exertion, no pedal edema GI: No abdominal pain, no diarrhea, no vomiting, no constipation Hospitalist Physical - Physical exam Narrative exam: General.: Appears well, no distress, nontoxic , unable to speak in full sentences HEENT: Moist mucous membranes, extraocular muscles intact, no lymphadenopathy Neck: supple Cardiac: S1-S2 heard Lungs: Wheezing and rhonchorous breath sounds throughout Abdomen: soft , nontender, nondistended, bowel sounds positive Extremities: no edema clubbing or cyanosis Skin: no rash or lesions Neurologic: no gross focal deficits Psych: appropriate behavior, appropriate mood, corporative, judgment intact - Constitutional Vitals: Temp Pulse Resp BP Pulse Ox 97.7 F 90 18 138/79 93 12/28/17 07:50 12/28/17 07:50 12/28/17 07:50 12/28/17 07:50 12/28/17 07:50 General appearance: Present: no acute distress, well-nourished Results - Labs CBC & Chem 7: 12/27/17 05:46 12/27/17 05:46 Labs: Laboratory Last Values WBC 10.0 K/mm3 (4.5-11.0) 12/27/17 05:46 RBC 4.56 M/mm3 (3.65-5.03) 12/27/17 05:46 Hgb 14.8 gm/dl (11.8-15.2) 12/27/17 05:46 Hct 43.0 % (35.5-45.6) 12/27/17 05:46 MCV 94 fl (84-94) 12/27/17 05:46 MCH 32 pg (28-32) 12/27/17 05:46 MCHC 34 % (32-34) 12/27/17 05:46 RDW 14.2 % (13.2-15.2) 12/27/17 05:46 Plt Count 140 K/mm3 (140-440) 12/27/17 05:46 Lymph % (Auto) 12.1 % (13.4-35.0) L 12/25/17 07:56 Garrett % (Auto) 10.6 % (0.0-7.3) H 12/25/17 07:56 Eos % (Auto) 6.6 % (0.0-4.3) H 12/25/17 07:56 Baso % (Auto) 1.2 % (0.0-1.8) 12/25/17 07:56 Lymph # 0.6 K/mm3 (1.2-5.4) L 12/25/17 07:56 Garrett # 0.5 K/mm3 (0.0-0.8) 12/25/17 07:56 Eos # 0.3 K/mm3 (0.0-0.4) 12/25/17 07:56 Baso # 0.1 K/mm3 (0.0-0.1) 12/25/17 07:56 Add Manual Diff Complete 12/27/17 05:46 Total Counted 100 12/27/17 05:46 Seg Neutrophils % Bricklayer'S Assistant 12/27/17 05:46 Seg Neuts % (Manual) 94.0 % (40.0-70.0) H 12/27/17 05:46 Band Neutrophils % 0 % 12/27/17 05:46 Lymphocytes % (Manual) 2.0 % (13.4-35.0) L 12/27/17 05:46 Reactive Lymphs % (Man) 0 % 12/27/17 05:46 Monocytes % (Manual) 4.0 % (0.0-7.3) 12/27/17 05:46 Eosinophils % (Manual) 0 % (0.0-4.3) 12/27/17 05:46 Basophils % (Manual) 0 % (0.0-1.8) 12/27/17 05:46 Metamyelocytes % 0 % 12/27/17 05:46 Myelocytes % 0 % 12/27/17 05:46 Promyelocytes % 0 % 12/27/17 05:46 Blast Cells % 0 % 12/27/17 05:46 Nucleated RBC % Not Reportable 12/27/17 05:46 Seg Neutrophils # 3.4 K/mm3 (1.8-7.7) 12/25/17 07:56 Seg Neutrophils # Man 9.4 K/mm3 (1.8-7.7) H 12/27/17 05:46 Band Neutrophils # 0.0 K/mm3 12/27/17 05:46 Lymphocytes # (Manual) 0.2 K/mm3 (1.2-5.4) L 12/27/17 05:46 Abs React Lymphs (Man) 0.0 K/mm3 12/27/17 05:46 Monocytes # (Manual) 0.4 K/mm3 (0.0-0.8) 12/27/17 05:46 Eosinophils # (Manual) 0.0 K/mm3 (0.0-0.4) 12/27/17 05:46 Basophils # (Manual) 0.0 K/mm3 (0.0-0.1) 12/27/17 05:46 Metamyelocytes # 0.0 K/mm3 12/27/17 05:46 Myelocytes # 0.0 K/mm3 12/27/17 05:46 Promyelocytes # 0.0 K/mm3 12/27/17 05:46 Blast Cells # 0.0 K/mm3 12/27/17 05:46 WBC Morphology Not Reportable 12/27/17 05:46 Hypersegmented Neuts Not Reportable 12/27/17 05:46 Hyposegmented Neuts Not Reportable 12/27/17 05:46 Hypogranular Neuts Not Reportable 12/27/17 05:46 Smudge Cells Not Reportable 12/27/17 05:46 Toxic Granulation Not Reportable 12/27/17 05:46 Toxic Vacuolation Not Reportable 12/27/17 05:46 Dohle Bodies Not Reportable 12/27/17 05:46 Pelger-Huet Anomaly Not Reportable 12/27/17 05:46 Carrol Rods Not Reportable 12/27/17 05:46 Platelet Estimate Cons 12/27/17 05:46 Clumped Platelets Not Reportable 12/27/17 05:46 Plt Clumps, EDTA Not Reportable 12/27/17 05:46 Large Platelets Not Reportable 12/27/17 05:46 Giant Platelets Not Reportable 12/27/17 05:46 Platelet Satelliting Not Reportable 12/27/17 05:46 Plt Morphology Comment Not Reportable 12/27/17 05:46 RBC Morphology Not Reportable 12/27/17 05:46 Dimorphic RBCs Not Reportable 12/27/17 05:46 Polychromasia Not Reportable 12/27/17 05:46 Hypochromasia Not Reportable 12/27/17 05:46 Poikilocytosis Not Reportable 12/27/17 05:46 Anisocytosis 1+ 12/27/17 05:46 Microcytosis Not Reportable 12/27/17 05:46 Macrocytosis Not Reportable 12/27/17 05:46 Spherocytes Not Reportable 12/27/17 05:46 Pappenheimer Bodies Not Reportable 12/27/17 05:46 Sickle Cells Not Reportable 12/27/17 05:46 Target Cells Not Reportable 12/27/17 05:46 Tear Drop Cells Not Reportable 12/27/17 05:46 Ovalocytes Not Reportable 12/27/17 05:46 Helmet Cells Not Reportable 12/27/17 05:46 [place] Bodies Not Reportable 12/27/17 05:46 [place] Rings Not Reportable 12/27/17 05:46 Guicho Cells Not Reportable 12/27/17 05:46 Bite Cells Not Reportable 12/27/17 05:46 Crenated Cell Not Reportable 12/27/17 05:46 Elliptocytes Not Reportable 12/27/17 05:46 Acanthocytes (Spur) Not Reportable 12/27/17 05:46 Rouleaux Not Reportable 12/27/17 05:46 Hemoglobin C Crystals Not Reportable 12/27/17 05:46 Schistocytes Not Reportable 12/27/17 05:46 Malaria parasites Not Reportable 12/27/17 05:46 Toño Bodies Not Reportable 12/27/17 05:46 Hem Pathologist Commnt No 12/27/17 05:46 D-Dimer 474.35 ng/mlDDU (0-234) H 12/26/17 20:55 POC ABG pH 7.435 (7.35-7.45) 12/26/17 21:29 POC ABG pCO2 36.8 (35-45) 12/26/17 21:29 POC ABG pO2 72 (80-105) L 12/26/17 21:29 POC ABG HCO3 24.7 12/26/17 21:29 POC ABG Total CO2 26 12/26/17 21:29 POC ABG O2 Sat 95 12/26/17 21:29 POC ABG Base Excess 1 12/26/17 21:29 FiO2 21 % 12/26/17 21:29 Sodium 136 mmol/L (137-145) L 12/27/17 05:46 Potassium 3.9 mmol/L (3.6-5.0) 12/27/17 05:46 Chloride 93.6 mmol/L (98-107) L 12/27/17 05:46 Carbon Dioxide 23 mmol/L (22-30) 12/27/17 05:46 Anion Gap 23 mmol/L 12/27/17 05:46 BUN 35 mg/dL (9-20) H 12/27/17 05:46 Creatinine 1.3 mg/dL (0.8-1.5) 12/27/17 05:46 Estimated GFR 54 ml/min 12/27/17 05:46 BUN/Creatinine Ratio 27 % 12/27/17 05:46 Glucose 153 mg/dL (75-100) H 12/27/17 05:46 Hemoglobin A1c 5.3 % (4-6) 12/26/17 03:34 Lactic Acid 1.10 mmol/L (0.7-2.0) 12/25/17 07:56 Calcium 9.4 mg/dL (8.4-10.2) 12/27/17 05:46 Total Bilirubin 0.40 mg/dL (0.1-1.2) 12/27/17 05:46 AST 20 units/L (5-40) 12/27/17 05:46 ALT 16 units/L (7-56) 12/27/17 05:46 Alkaline Phosphatase 73 units/L (35-129) 12/27/17 05:46 Troponin T < 0.010 ng/mL (0.00-0.029) 12/26/17 06:51 C-Reactive Protein 0.80 mg/dL (0.00-1.30) 12/26/17 20:55 Total Protein 7.1 g/dL (6.3-8.2) 12/27/17 05:46 Albumin 4.1 g/dL (3.9-5) 12/27/17 05:46 Albumin/Globulin Ratio 1.4 % 12/27/17 05:46
[2017-12-28 12:00] VITALS: BP 118/66
--- NOTE | 2017-12-28 13:45 | Progress Note ---
Assessment and Plan Patient alert, awake and resting on room air.Patient says breathing alright now.O2 saturation 92% on room air.Complaining back pain coming and going. - Patient Problems (1) Asthma Current Visit: Yes Status: Chronic Qualifiers: Asthma severity: mild Plan to address problem: O2 2 litres via nasal canula Albuterol/atrovent aerosol treatments q 6 hours. Continue I/V solumedrol Continue S/C Lovenox. Continue famotidine. Continue Levaquin. (2) Acute bronchitis Current Visit: Yes Status: Acute Qualifiers: Bronchitis organism: unspecified organism Qualified Code(s): J20.9 - Acute bronchitis, unspecified Plan to address problem: Continue Levaquin. (3) CAD (coronary artery disease) Current Visit: Yes Status: Chronic Qualifiers: Coronary Disease-Associated Artery/Lesion type: [place] artery Plan to address problem: Management as per primary care and cardiology. (4) HTN (hypertension) Current Visit: Yes Status: Chronic Qualifiers: Hypertension type: essential hypertension Qualified Code(s): I10 - Essential (primary) hypertension Plan to address problem: Management as per primary care. (5) Hyperlipidemia Current Visit: Yes Status: Chronic Qualifiers: Hyperlipidemia type: mixed hyperlipidemia Qualified Code(s): E78.2 - Mixed hyperlipidemia Plan to address problem: Management as per primary care. Subjective Date of service: 12/28/17 Interval history: Patient alert, awake and resting on room air.Patient says breathing alright now.O2 saturation 92% on room air.Complaining back pain coming and going. Objective Vital Signs - 12hr 12/28/17 12/28/17 12/28/17 04:24 07:50 11:24 Temperature 98.3 F 97.7 F 98.3 F Pulse Rate 97 H 90 82 Respiratory 20 18 18 Rate Blood Pressure 134/75 138/79 126/68 O2 Sat by Pulse 95 93 94 Oximetry 12/28/17 11:27 Temperature Pulse Rate 65 Respiratory Rate Blood Pressure 118/66 O2 Sat by Pulse 90 Oximetry Constitutional: no acute distress, alert Eyes: non-icteric ENT: oropharynx moist Ascultation: Bilateral: diminished breath sounds (at the bases.) Cardiovascular: regular rate and rhythm Gastrointestinal: normoactive bowel sounds, soft, non-tender Integumentary: normal Extremities: no cyanosis, no edema Neurologic: normal mental status, non-focal exam, pupils equal and round, CN II- XII normal Psychiatric: mood appropriate CBC and BMP: 12/27/17 05:46 12/27/17 05:46 ABG, PT/INR, D-dimer: ABG POC ABG pH 7.435 (7.35-7.45) 12/26/17 21:29 POC ABG pCO2 36.8 (35-45) 12/26/17 21:29 POC ABG pO2 72 (80-105) L 12/26/17 21:29 POC ABG HCO3 24.7 12/26/17 21:29 POC ABG Total CO2 26 12/26/17 21:29 POC ABG O2 Sat 95 12/26/17 21:29 PT/INR, D-dimer D-Dimer 474.35 ng/mlDDU (0-234) H 12/26/17 20:55 Abnormal lab findings: Abnormal Labs 12/25/17 12/25/17 12/26/17 07:56 07:56 20:55 MCV 96 H Plt Count 116 L Lymph % (Auto) 12.1 L Mcpherson % (Auto) 10.6 H Eos % (Auto) 6.6 H Lymph # 0.6 L Seg Neuts % (Manual) Lymphocytes % (Manual) Seg Neutrophils # Man Lymphocytes # (Manual) D-Dimer 474.35 H POC ABG pO2 Sodium Chloride BUN Glucose 113 H 12/26/17 12/27/17 12/27/17 21:29 05:46 05:46 MCV Plt Count Lymph % (Auto) Mcpherson % (Auto) Eos % (Auto) Lymph # Seg Neuts % (Manual) 94.0 H Lymphocytes % (Manual) 2.0 L Seg Neutrophils # Man 9.4 H Lymphocytes # (Manual) 0.2 L D-Dimer POC ABG pO2 72 L Sodium 136 L Chloride 93.6 L BUN 35 H Glucose 153 H
== END 2017-12-28 13:40 | disposition home or self-care (01) | DRG 189 ==
LOC: ED 07:10 → 4A 13:58
PROVIDERS: ADMIT Internal Medicine; ATTEND Internal Medicine
PROC: 4A033R1 Measurement of Arterial Saturation, Peripheral, Percutaneous Approach (ICD-10-PCS; principal; 2017-12-26)
DX: J96.01 Acute respiratory failure with hypoxia (principal); J44.1 Chronic obstructive pulmonary disease with (acute) exacerbation; J44.0 Chronic obstructive pulmonary disease with (acute) lower respiratory infection; J20.9 Acute bronchitis, unspecified; I25.10 Atherosclerotic heart disease of native coronary artery without angina pectoris; I10 Essential (primary) hypertension; E78.5 Hyperlipidemia, unspecified; R07.89 Other chest pain; R73.9 Hyperglycemia, unspecified; E66.9 Obesity, unspecified; Z68.30 Body mass index [BMI] 30.0-30.9, adult; Z79.82 Long term (current) use of aspirin; Z79.899 Other long term (current) drug therapy; Z95.5 Presence of coronary angioplasty implant and graft; Z79.51 Long term (current) use of inhaled steroids
CPT/HCPCS: 36415; 36600; 71045; 71275; 72100; 78452; 80053; 82140; 82803; 83036; 84484; 85007; 85025; 85379; 86140; 87040; 87205; 93005; 93010; 93017; 93306; 93970; 94640; 96374; 96375; A9270-GY; A9502; J1650; J1940; J1956; J2405; J2785; J2930; Q9967